=== PATIENT | female | born 1990 ===

== ENCOUNTER 2020-12-13 04:19 | Inpatient (IN) | payer OTHER ==
[~2020-12-13] VITALS: Ht 154.9 cm; Wt 79.8 kg
[2020-12-13] MEDS ORDERED: PRENATAL TABLE1 EAC1 PO (04:22)
== END 2020-12-15 18:16 | disposition home or self-care (01) | DRG 833 ==
LOC: OBS/DEL 04:19 → LDR 22:44 → OBS/DEL 22:44 → LDR 12-15 18:16
PROVIDERS: ADMIT Obstetrics & Gynecology; ATTEND Obstetrics & Gynecology
PROC: BT4JZZZ Ultrasonography of Kidneys and Bladder (ICD-10-PCS; principal; 2020-12-13)
PROC: BY4FZZZ Ultrasonography of Third Trimester, Single Fetus (ICD-10-PCS; 2020-12-13)
PROC: 4A1HXFZ Monitoring of Products of Conception, Cardiac Rhythm, External Approach (ICD-10-PCS; 2020-12-13)
DX: O99.891 Other specified diseases and conditions complicating pregnancy (principal); R10.2 Pelvic and perineal pain; O36.8330 Maternal care for abnormalities of the fetal heart rate or rhythm, third trimester, not applicable or unspecified; Z3A.36 36 weeks gestation of pregnancy

== ENCOUNTER 2021-01-09 21:15 | Inpatient (IN) | payer OTHER ==
[~2021-01-09] VITALS: Ht 154.9 cm; Wt 79.4 kg
[~2021-01-09 21:15] MED LIST: PRENATAL TABLE1 EAC1 PO
== END 2021-01-11 18:55 | disposition home or self-care (01) | DRG 807 ==
LOC: OBS/DEL 21:15 → LDR 01-10 02:02 → OB/GYN 01-10 22:05
PROVIDERS: ADMIT Obstetrics & Gynecology; ATTEND Obstetrics & Gynecology
PROC: 10E0XZZ Delivery of Products of Conception, External Approach (ICD-10-PCS; principal; 2021-01-10)
PROC: 10907ZC Drainage of Amniotic Fluid, Therapeutic from Products of Conception, Via Natural or Artificial Opening (ICD-10-PCS; 2021-01-10)
PROC: 4A1HXFZ Monitoring of Products of Conception, Cardiac Rhythm, External Approach (ICD-10-PCS; 2021-01-10)
DX: O80 Encounter for full-term uncomplicated delivery (principal); Z37.0 Single live birth; Z3A.39 39 weeks gestation of pregnancy

== ENCOUNTER 2021-01-15 08:00 | Outpatient (CLI) | payer OTHER | END 2021-01-15 08:30 | disposition home or self-care (01) | LOC: PPH VACUNA 08:00 | DX: Z23 Encounter for immunization (principal) ==